=== PATIENT | female | born 1955 | race Two or more races ===

== ENCOUNTER → 2024-04-25 | Outpatient (BNVA) | payer MEDICARE, SELFPAY | END | disposition home or self-care (01) | PROVIDERS: PCP Internal Medicine; Referring Provider Internal Medicine; Visit Provider Urology | DX: N39.46 Mixed incontinence (principal); Z87.440 Personal history of urinary (tract) infections; I10 Essential (primary) hypertension; E66.9 Obesity, unspecified; Z68.41 Body mass index [BMI] 40.0-44.9, adult | CPT/HCPCS: 81003; 99212; G0463 ==